=== PATIENT | female | born 1970 | race Caucasian/White ===

== ENCOUNTER → 2025-03-25 09:28 | Outpatient (REF) | payer BC, SELFPAY | LOC: WDC 09:28 | PROVIDERS: ATTENDING PHYSICIAN Nurse Practitioner Adult Health | DX: N63.0 Unspecified lump in unspecified breast (principal) | CPT/HCPCS: 76642; 77062; 77066 ==

== ENCOUNTER → 2025-03-29 07:49 | Outpatient (REF) | payer BC, SELFPAY ==
--- NOTE | 2025-03-29 13:16 | OID.BR.INTR ---
PRISCILLAD Breast Navigator - Initial
- -
Date of Contact: 03/29/25
Met with patient. Patient given written information on navigator service available at [facility]. Will follow up as needed per protocol.
== END ==
LOC: WDC 07:49
PROVIDERS: ATTENDING PHYSICIAN Nurse Practitioner Adult Health
DX: N63.21 Unspecified lump in the left breast, upper outer quadrant (principal)
CPT/HCPCS: 19083; 88305; 88341; 88342; 88360; A4648

== ENCOUNTER 2025-07-15 21:51 | Inpatient (IN) | payer BC, SELFPAY ==
[2025-07-15 13:26] VITALS: BP 112/65
[2025-07-15 13:50] LABS: Hematocrit 31.2 % (37.0-47.0); Hemoglobin 10.7 g/dL (12.0-16.0); Mean Corp Hgb Conc. 34.3 g/dL (33.0-37.0); Mean Corpuscular Volume 90.4 fL (81.0-99.0); Nucleated Red Blood Cells % 0 %; Platelet Count 385 10^3/uL (130-400); Red Cell Dist. Width 11.6 % (11.5-14.5)
[2025-07-15 14:03] LABS: ALT (SGPT) 306 U/L (0-35); AST (SGOT) 264 U/L (14-36); Albumin 4.1 g/dl (3.5-5.0); Alkaline Phosphatase 410 U/L (38-126); Blood Urea Nitrogen 10 mg/dl (7-17); Calcium 9.7 mg/dl (8.4-10.2); Carbon Dioxide 26 mmol/L (22-30); Chloride 100 mmol/L (98-107); Glucose 161 mg/dl (70-99); Potassium 3.8 mmol/L (3.5-5.1); Sodium 136 mmol/L (135-145); Total Protein 6.9 g/dl (6.3-8.2); eGFR > 60.00
[2025-07-15 15:44] VITALS: BMI 20.5
--- NOTE | 2025-07-15 15:49 | ED.GENMED ---
History of Present Illness
<YUMI Wayne - Last Filed: 07/18/25 14:59>
General
Chief Complaint: Post Operative Problem(s)
Source: patient
Exam Limitations: none
Time Seen by Provider: 07/15/25 15:34
Nursing documentation reviewed up to this point in time: agreed with
History of Present Illness
History of Present Illness:
Patient is a 54-year-old female with recently diagnosed breast cancer in April status post right mastectomy May 25 and status post reconstruction June 27 at [facility] by DR Bardales.
Patient reports for the past 1-1/2 weeks she has really not felt well she has had some headaches and joint pain. She thought it was her Arimidex which she is taking for her cancer. She started this July 05. She has had a fever of 102 for the
past 4 nights. She saw her family doctor today however and family doctor noted that her lower incision is red.
She did see his nurse on Friday 3 days ago it was red then however redness has since worsened and spread.
Phy Exam
<YUMI Wayne - Last Filed: 07/18/25 14:59>
General Physical Exam
General Presentation: no apparent distress
General age: appears stated age
General Skin: warm and dry
General Habitus: normal
General Hydration: appears well hydrated
Gastrointestinal Exam
Gastrointestinal Exam: soft and other (scattered erythema to abdomen around incisional site and throughout abdomen, no dehiscence no drainage. non tender )
Neurological Exam
Neurological Exam: alert and oriented x3
Musculoskeletal Exam
Musculoskeletal Exam: full ROM
Skin Exam
Skin Exam: normal color, warm/dry and other (right breast surgical site no evidence of infection or redness)
Psychiatric Exam
Psychiatric Exam: normal mood/affect
Sepsis
<YUMI Wayne - Last Filed: 07/18/25 14:59>
Sepsis Screen
Sepsis Screen: Sepsis Ruled Out
Date: 07/18/25
Time: 14:58
<Dasia Martines PA-C - Last Filed: 07/15/25 23:30>
Sepsis Screening
Sepsis Assessment: Sepsis Ruled Out
Sepsis Screen
Sepsis Screen: Sepsis Ruled Out
Date: 07/15/25
Time: 23:30
Course
<YUMI Wayne - Last Filed: 07/18/25 14:59>
Orders/Labs/Results
Orders:
Orders
07/15/25 13:37
Complete Blood Count/With Diff Urgent
Comprehensive Metabolic Panel Urgent
Lactic Acid Q4H
Comment: ON ICE, CANCEL 2ND ORDER IF FIRST LACTIC ACID LEVEL <2
Blood Culture Q20M
AMADOR Source: Blood/Venous
Specimen Description:
Comment: Urgent from separate sites. If patient screens positive for possible sepsis
07/15/25 15:49
COVID-19 Antigen Urgent
Source: Nasal Swab
Influenza A+B Rapid Molecular Urgent
AMADOR Source: Nasal Swab
Specimen Description:
07/15/25 16:30
CT Abd/Pel (IV only)-DH only Urgent
Comment:
Reason For Exam: post op fever /redness to surgical site
07/15/25 18:59
Ketorolac [Toradol] 15 mg IV NOW STA
07/15/25 19:09
Blood Culture Q20M
AMADOR Source: Blood/Venous
Specimen Description:
Comment: Urgent from separate sites. If patient screens positive for possible sepsis
07/15/25 19:26
Piperacillin/Tazo 3.375 Gram [Zosyn] 3.375 gram in 50 ml IV NOW
07/15/25 19:57
Acetaminophen [Tylenol] 650 mg .ROUTE .STK-MED ONE
07/15/25 19:58
Acetaminophen [Tylenol] 650 mg PO NOW STA
07/15/25 20:25
Vancomycin [Vancocin] 1,500 mg 0.9% Sodium Chloride 500 ml [Nss] 500 ml IV NOW
07/15/25 20:53
Admit/Transfer Patient As Directed
Co-Sign Provider:
Level of Care: Inpatient admission
Assign to:: Medical/Surgical
Physician / Group: Antoine Barrow
Diagnosis: postoperative incision infection
Reason for Hospitalization: postoperative incision infection
Expected length of stay greater than two midnights?: Yes
ELOS- Estimated Length of Stay in days: 3
I certify the patient meets the requirements for IP care: Yes
07/15/25 20:54
PRN Pain Medication Management As Directed
May give lesser potent ordered pain med per pt: Yes
preference::
Protocol:: Medication orders for pain may be administered in a
manner that supports deferring to patient preference
when the pt is:
- Requesting an ordered lesser potent pain medication.
Least to most potent pain medications are defined
as: acetaminophen < NSAID < tramadol < opioids
(morphine, oxycodone, hydromorphone).
- Requesting a lesser dose of the same medication IF
ORDERED.
- Requesting a less intrusive route of administration
if both routes are prescribed by the provider (PO <
IV).
07/15/25 20:55
Code Status As Directed
Resuscitation Status: Full Code
07/15/25 22:27
Acetaminophen [Tylenol] 650 mg PO Q4HPRN PRN
Lorazepam [Ativan] 0.5 mg PO TIDPRN PRN anxiety
07/15/25 22:27
Activity As Directed
Activity Level: Ambulate
Vital Signs As Directed
Frequency: Per unit guidelines
Weight As Directed
Frequency: Once
Comment: on admission
DX Deep Vein Thrombosis Video Routine
07/16/25 02:00
Piperacillin/Tazo 3.375 Gram [Zosyn] 3.375 gram in 50 ml IV Q6H
07/16/25 Breakfast
Regular
At Your Request: Full Participation
07/16/25 08:00
Anastrozole [Arimidex] 1 mg PO DAILY
Aspirin Low Dose EC [Aspir Low (Enteric Coated)] 81 mg PO DAILY
Docusate Sodium [Colace] 100 mg PO DAILY
Lactobac/Bifidobac [Visbiome] 1 cap PO DAILY
07/16/25 08:02
Complete Blood Count/No Diff IN AM
Comprehensive Metabolic Panel IN AM
07/16/25 18:00
Enoxaparin Sodium [Lovenox] 40 mg SC QPM
Abnormal Lab Results
07/15/25
13:37
RBC 3.45 L 10^6/uL
(4.20-5.40)
Hgb 10.7 L g/dL
(12.0-16.0)
Hct 31.2 L %
(37.0-47.0)
Abs Immat Gran (auto) 0.1 H 10^3/uL
(0-0.05)
Absolute Neuts (auto) 7.5 H 10^3/uL
(1.4-6.5)
Absolute Lymphs (auto) 0.5 L 10^3/uL
(1.2-3.4)
Absolute Monos (auto) 0.8 H 10^3/uL
(0.1-0.6)
Immature Gran % 0.6 H %
(0-0.5)
Neutrophils % 84.2 H %
(42.2-75.2)
Lymphocytes % 5.9 L %
(20.5-51.1)
Creatinine 0.4 L mg/dL
(0.6-1.0)
Glucose 161 H mg/dl
(70-99)
AST 264 H U/L
(14-36)
ALT 306 H U/L
(0-35)
Alkaline Phosphatase 410 H U/L
(38-126)
07/15/25 13:37
07/15/25 13:37
Vital Signs
Initial and Last Documented VS:
Initial Vital Signs
Temp Pulse Resp BP Pulse Ox
97.5 F 91 16 112/65 98
07/15/25 13:26 07/15/25 13:26 07/15/25 13:26 07/15/25 13:26 07/15/25 13:26
Last Documented Vital Signs
Temp Pulse Resp BP Pulse Ox
97.9 F 67 16 104/59 99
07/18/25 07:20 07/18/25 07:20 07/18/25 07:20 07/18/25 07:20 07/18/25 07:55
[employer] Clerk consulted with Physician
[employer] Clerk consulted with physician?: Yes
<Soniod Handley MD - Last Filed: 07/15/25 21:49>
Orders/Labs/Results
Orders:
Orders
07/15/25 13:37
Complete Blood Count/With Diff Urgent
Comprehensive Metabolic Panel Urgent
Lactic Acid Q4H
Comment: ON ICE, CANCEL 2ND ORDER IF FIRST LACTIC ACID LEVEL <2
Blood Culture Q20M
AMADOR Source: Blood/Venous
Specimen Description:
Comment: Urgent from separate sites. If patient screens positive for possible sepsis
07/15/25 15:49
COVID-19 Antigen Urgent
Source: Nasal Swab
Influenza A+B Rapid Molecular Urgent
AMADOR Source: Nasal Swab
Specimen Description:
07/15/25 16:30
CT Abd/Pel (IV only)-[facility] only Urgent
Comment:
Reason For Exam: post op fever /redness to surgical site
07/15/25 18:59
Ketorolac [Toradol] 15 mg IV NOW STA
07/15/25 19:09
Blood Culture Q20M
AMADOR Source: Blood/Venous
Specimen Description:
Comment: Urgent from separate sites. If patient screens positive for possible sepsis
07/15/25 19:26
Piperacillin/Tazo 3.375 Gram [Zosyn] 3.375 gram in 50 ml IV NOW
07/15/25 19:57
Acetaminophen [Tylenol] 650 mg .ROUTE .STK-MED ONE
07/15/25 19:58
Acetaminophen [Tylenol] 650 mg PO NOW STA
07/15/25 20:25
Vancomycin [Vancocin] 1,500 mg 0.9% Sodium Chloride 500 ml [Nss] 500 ml IV NOW
07/15/25 20:53
Admit/Transfer Patient As Directed
Co-Sign Provider:
Level of Care: Inpatient admission
Assign to:: Medical/Surgical
Physician / Group: Antoine Barrow
Diagnosis: postoperative incision infection
Reason for Hospitalization: postoperative incision infection
Expected length of stay greater than two midnights?: Yes
ELOS- Estimated Length of Stay in days: 3
I certify the patient meets the requirements for IP care: Yes
07/15/25 20:54
PRN Pain Medication Management As Directed
May give lesser potent ordered pain med per pt: Yes
preference::
Protocol:: Medication orders for pain may be administered in a
manner that supports deferring to patient preference
when the pt is:
- Requesting an ordered lesser potent pain medication.
Least to most potent pain medications are defined
as: acetaminophen < NSAID < tramadol < opioids
(morphine, oxycodone, hydromorphone).
- Requesting a lesser dose of the same medication IF
ORDERED.
- Requesting a less intrusive route of administration
if both routes are prescribed by the provider (PO <
IV).
07/15/25 20:55
Code Status As Directed
Resuscitation Status: Full Code
07/15/25 22:27
Acetaminophen [Tylenol] 650 mg PO Q4HPRN PRN
Lorazepam [Ativan] 0.5 mg PO TIDPRN PRN anxiety
07/15/25 22:27
Activity As Directed
Activity Level: Ambulate
Vital Signs As Directed
Frequency: Per unit guidelines
Weight As Directed
Frequency: Once
Comment: on admission
DX Deep Vein Thrombosis Video Routine
07/16/25 02:00
Piperacillin/Tazo 3.375 Gram [Zosyn] 3.375 gram in 50 ml IV Q6H
07/16/25 Breakfast
Regular
At Your Request: Full Participation
07/16/25 08:00
Anastrozole [Arimidex] 1 mg PO DAILY
Aspirin Low Dose EC [Aspir Low (Enteric Coated)] 81 mg PO DAILY
Docusate Sodium [Colace] 100 mg PO DAILY
Lactobac/Bifidobac [Visbiome] 1 cap PO DAILY
07/16/25 08:02
Complete Blood Count/No Diff IN AM
Comprehensive Metabolic Panel IN AM
07/16/25 18:00
Enoxaparin Sodium [Lovenox] 40 mg SC QPM
Abnormal Lab Results
07/15/25
13:37
RBC 3.45 L 10^6/uL
(4.20-5.40)
Hgb 10.7 L g/dL
(12.0-16.0)
Hct 31.2 L %
(37.0-47.0)
Abs Immat Gran (auto) 0.1 H 10^3/uL
(0-0.05)
Absolute Neuts (auto) 7.5 H 10^3/uL
(1.4-6.5)
Absolute Lymphs (auto) 0.5 L 10^3/uL
(1.2-3.4)
Absolute Monos (auto) 0.8 H 10^3/uL
(0.1-0.6)
Immature Gran % 0.6 H %
(0-0.5)
Neutrophils % 84.2 H %
(42.2-75.2)
Lymphocytes % 5.9 L %
(20.5-51.1)
Creatinine 0.4 L mg/dL
(0.6-1.0)
Glucose 161 H mg/dl
(70-99)
AST 264 H U/L
(14-36)
ALT 306 H U/L
(0-35)
Alkaline Phosphatase 410 H U/L
(38-126)
07/15/25 13:37
07/15/25 13:37
Vital Signs
Initial and Last Documented VS:
Initial Vital Signs
Temp Pulse Resp BP Pulse Ox
97.5 F 91 16 112/65 98
07/15/25 13:26 07/15/25 13:26 07/15/25 13:26 07/15/25 13:26 07/15/25 13:26
Last Documented Vital Signs
Temp Pulse Resp BP Pulse Ox
97.9 F 67 16 104/59 99
07/18/25 07:20 07/18/25 07:20 07/18/25 07:20 07/18/25 07:20 07/18/25 07:55
<Dasia Martines PA-C - Last Filed: 07/15/25 23:30>
Orders/Labs/Results
Orders:
Orders
07/15/25 13:37
Complete Blood Count/With Diff Urgent
Comprehensive Metabolic Panel Urgent
Lactic Acid Q4H
Comment: ON ICE, CANCEL 2ND ORDER IF FIRST LACTIC ACID LEVEL <2
Blood Culture Q20M
AMADOR Source: Blood/Venous
Specimen Description:
Comment: Urgent from separate sites. If patient screens positive for possible sepsis
07/15/25 15:49
COVID-19 Antigen Urgent
Source: Nasal Swab
Influenza A+B Rapid Molecular Urgent
AMADOR Source: Nasal Swab
Specimen Description:
07/15/25 16:30
CT Abd/Pel (IV only)-[facility] only Urgent
Comment:
Reason For Exam: post op fever /redness to surgical site
07/15/25 18:59
Ketorolac [Toradol] 15 mg IV NOW STA
07/15/25 19:09
Blood Culture Q20M
AMADOR Source: Blood/Venous
Specimen Description:
Comment: Urgent from separate sites. If patient screens positive for possible sepsis
07/15/25 19:26
Piperacillin/Tazo 3.375 Gram [Zosyn] 3.375 gram in 50 ml IV NOW
07/15/25 19:57
Acetaminophen [Tylenol] 650 mg .ROUTE .STK-MED ONE
07/15/25 19:58
Acetaminophen [Tylenol] 650 mg PO NOW STA
07/15/25 20:25
Vancomycin [Vancocin] 1,500 mg 0.9% Sodium Chloride 500 ml [Nss] 500 ml IV NOW
07/15/25 20:53
Admit/Transfer Patient As Directed
Co-Sign Provider:
Level of Care: Inpatient admission
Assign to:: Medical/Surgical
Physician / Group: Antoine Barrow
Diagnosis: postoperative incision infection
Reason for Hospitalization: postoperative incision infection
Expected length of stay greater than two midnights?: Yes
ELOS- Estimated Length of Stay in days: 3
I certify the patient meets the requirements for IP care: Yes
07/15/25 20:54
PRN Pain Medication Management As Directed
May give lesser potent ordered pain med per pt: Yes
preference::
Protocol:: Medication orders for pain may be administered in a
manner that supports deferring to patient preference
when the pt is:
- Requesting an ordered lesser potent pain medication.
Least to most potent pain medications are defined
as: acetaminophen < NSAID < tramadol < opioids
(morphine, oxycodone, hydromorphone).
- Requesting a lesser dose of the same medication IF
ORDERED.
- Requesting a less intrusive route of administration
if both routes are prescribed by the provider (PO <
IV).
07/15/25 20:55
Code Status As Directed
Resuscitation Status: Full Code
07/15/25 22:27
Acetaminophen [Tylenol] 650 mg PO Q4HPRN PRN
Lorazepam [Ativan] 0.5 mg PO TIDPRN PRN anxiety
07/15/25 22:27
Activity As Directed
Activity Level: Ambulate
Vital Signs As Directed
Frequency: Per unit guidelines
Weight As Directed
Frequency: Once
Comment: on admission
DX Deep Vein Thrombosis Video Routine
07/16/25 02:00
Piperacillin/Tazo 3.375 Gram [Zosyn] 3.375 gram in 50 ml IV Q6H
07/16/25 Breakfast
Regular
At Your Request: Full Participation
07/16/25 08:00
Anastrozole [Arimidex] 1 mg PO DAILY
Aspirin Low Dose EC [Aspir Low (Enteric Coated)] 81 mg PO DAILY
Docusate Sodium [Colace] 100 mg PO DAILY
Lactobac/Bifidobac [Visbiome] 1 cap PO DAILY
07/16/25 08:02
Complete Blood Count/No Diff IN AM
Comprehensive Metabolic Panel IN AM
07/16/25 18:00
Enoxaparin Sodium [Lovenox] 40 mg SC QPM
Abnormal Lab Results
07/15/25
13:37
RBC 3.45 L 10^6/uL
(4.20-5.40)
Hgb 10.7 L g/dL
(12.0-16.0)
Hct 31.2 L %
(37.0-47.0)
Abs Immat Gran (auto) 0.1 H 10^3/uL
(0-0.05)
Absolute Neuts (auto) 7.5 H 10^3/uL
(1.4-6.5)
Absolute Lymphs (auto) 0.5 L 10^3/uL
(1.2-3.4)
Absolute Monos (auto) 0.8 H 10^3/uL
(0.1-0.6)
Immature Gran % 0.6 H %
(0-0.5)
Neutrophils % 84.2 H %
(42.2-75.2)
Lymphocytes % 5.9 L %
(20.5-51.1)
Creatinine 0.4 L mg/dL
(0.6-1.0)
Glucose 161 H mg/dl
(70-99)
AST 264 H U/L
(14-36)
ALT 306 H U/L
(0-35)
Alkaline Phosphatase 410 H U/L
(38-126)
07/15/25 13:37
07/15/25 13:37
Vital Signs
Initial and Last Documented VS:
Initial Vital Signs
Temp Pulse Resp BP Pulse Ox
97.5 F 91 16 112/65 98
07/15/25 13:26 07/15/25 13:26 07/15/25 13:26 07/15/25 13:26 07/15/25 13:26
Last Documented Vital Signs
Temp Pulse Resp BP Pulse Ox
97.9 F 67 16 104/59 99
07/18/25 07:20 07/18/25 07:20 07/18/25 07:20 07/18/25 07:20 07/18/25 07:55
<YUIM Wayne - Last Filed: 07/18/25 14:59>
MDM/Problems Addressed
Differential Diagnosis Includes:
Not limited to postop surgical site infection, abscess, cellulitis
MDM/Problems Addressed:
As documented patient is status post reconstruction surgery had trans flap for right breast mastectomy 06/27. She has obvious erythema to the abdominal region around the incision and throughout. She has had a fever of 102 for the past 4 days. As
documented her surgery was done at [place]. She is afebrile here last dose of Tylenol was at 10 AM this morning. She has normal white count. LFTs are elevated including AST ALT and alk phosphatase.
Call placed to DR Bardales's office. d/c w/ ED physician will order CT to rule out abscess .
163: Care of patient at this time transferred to [facility]
Chronic conditions affecting care:
Right-sided breast cancer
<YUMI Wayne - Last Filed: 07/18/25 14:59>
*Pulse Oximetry
SaO2: 100
Oxygen Mode of Delivery: Room air
Patient hypoxic: no
<Dasia Martines PA-C - Last Filed: 07/15/25 23:30>
*Critical Care Note
Total Time (30-74mins, 75-104mins- exclusive of procedures): Not Applicable
<Dasia Martines PA-C - Last Filed: 07/15/25 23:30>
Patient Management
Discussion with other providers: Hospitalist
<Dasia Martines PA-C - Last Filed: 07/15/25 23:30>
Update Note
Update Note:
Update: Received patient in signout pending CT scan. CT scan reveals fluid collection in lower anterior abdominal wall unclear if this could be a postsurgical seroma/hematoma or developing abscess. On my exam�there is significant erythema and
tenderness surrounding incision however no focal area of fluctuance. No wound dehiscence or drainage. I do favor infectious process given overall clinical picture.
I did speak with on-call plastic surgery at [facility], Dr. Lamb and reviewed case/CT results. He has overall low suspicion for focal abscess after discussion of given patient was recently seen outpatient in the office. Does not see indication for
surgical intervention or emergent transfer to help at this time. Ultimately�he does recommend admission for IV antibiotics, vancomycin and Zosyn and close monitoring of patient's response to ABX with consideration for transfer/additional
consultation with surgical team if symptoms persist and/or worsen despite IV antibiotics.
Patient did spike a fever of 101.2 while in department. She was given a dose of Tylenol. IV Zosyn/vancomycin initiated in ED. Patient accepted to hospitalist service for continued management.
ED Attending Note
<YUMI Wayne - Last Filed: 07/18/25 14:59>
-
Portions of this chart may have been created with voice recognition software.� Occasional wrong word or��sound alike� substitutions may have occurred due to the inherent limitations of voice recognition software.
<Sonido Handley MD - Last Filed: 07/15/25 21:49>
ED Attending Note
Patient seen and examined by attending physician: Yes
ED Attending Note:
Patient status post right mastectomy in May, reconstruction surgery in June, presents to ED secondary to worsening redness, pain, along with fever and chills along her abdominal incision site over the past 5 days. Patient was evaluated by
her surgery team 3 days ago, where was noted to be red. At that time, decision was to keep an eye on the site, with potential initiation of antibiotics, if her symptoms worsen. Since then, redness has worsened with pain, along with aforementioned
fever. Denies vomiting. Denies open wound. Denies open drainage. Patient has been taking Tylenol/Motrin for fever and pain.
Physical Exam
General: mild distress, not acutely ill. afebrile
Head: nc/at. eomi
Neck: supple. normal range of motion.
Heart: s1/s2 regular rate and rhythm
Lungs: no acute respiratory distress. clear bilaterally
Abdomen: normal bowel sounds. no distention. healing horizontal incision site noted along lower abdomen with diffuse surrounding erythema/warmth with tenderness. no open drainage noted
Neuro: alert and oriented x 3. no focal neurological deficits
Skin: no rash
Psychiatric: well kept. interactive and cooperative
Extremities: no edema.
CT abdomen pelvis pending, to evaluate for potential development of abscess. Will contact patient's surgeon at [facility] afterwards.
CT abd/pel report reviewed and discussed with surgical team at [facility] - does not feel that pt needs urgent transfer, but does recommend iv abx.
Blood cx pending
Discharge Plan
Departure
Patient Disposition: Admit
Date of Disposition: 07/15/25
Time of Disposition: 19:43
Presentation/result/management discussed w/ accepting MD/DO: Hospitalist
Discharge Problem:
Incisional infection
Interventions
Interventions:
*General Assessment Last Done: 07/15/25 13:26
*Neglect/Abuse Screening Last Done: 07/15/25 13:26
*ED Influenza Vaccine History Last Done: 07/15/25 15:45
[facility] Risk Assessment Tool Last Done: 07/15/25 16:00
*Nursing Disposition Last Done: 07/15/25 22:36
ED-Skin Assessment Last Done: 07/15/25 15:45
Discharge Date and Time
Discharge Date/Time: 07/15/25 22:37
[2025-07-15 15:53] VITALS: BP 108/69
[2025-07-15 16:17] LABS: COVID-19 Antigen Negative (Negative)
[2025-07-15] MEDS: TORADOL 15 MG IV (19:05)
[2025-07-15 19:54] VITALS: BP 109/65
[2025-07-15] MEDS: TYLENOL 650 MG PO (19:58)
[2025-07-15] MEDS: ZOSYN 50 IV (20:01)
--- NOTE | 2025-07-15 20:14 | HPS.HSE ---
Addendum entered and electronically signed by Lary Barrow MD 07/15/25 21:10:
This is an addendum to H&P written by Brittany Murcia on 07/15/2025. �Patient seen and examined independently with [facility].
54-year-old female past medical history of breast cancer diagnosed in April status post right mastectomy on 05/25 status post reconstruction with abdominal flap on 06/27 at [facility] by Dr. Bardales presenting with headaches and joint pain and
fever of 102 for the past 4 days. �Incision site from breast surgery is red.
Vital signs show temperature 101.2.
Labs show stable anemia 10.7. �Elevated liver enzymes AST 264, ALT 306, alkaline phosphatase 410.
CT abdomen pelvis shows low-attenuation fluid collection 12 cm x 3 cm craniocaudal, mild adjacent surrounding soft tissue stranding. �No gas within the collection could represent postsurgical sterile collection such as seroma or hematoma or abscess.
Patient with concern for postsurgical infection of abdominal flap site used for breast reconstruction. �There is also concern for seroma or abscess. �Emergency room discussed with patient's surgeon who did not see any need for surgical management or
transfer and recommended she stay here to monitor for improvement. �Check blood cultures. �Vancomycin/Zosyn. �ID consulted.
Transaminitis likely from anastrozole. �Continue to monitor.
Original Note:
Family Physician
-
Family Physician: Orlando Bardales
Chief Complaint
-
postoperative infection
History of Present Illness
Patient is a 54-year-old female with past medical history significant for breast cancer who presented to [facility] ED for evaluation of postoperative infection. Patient recently diagnosed breast cancer in May 2025 and is status post right mastectomy
and status post reconstruction June 27, 2025 at [facility] by DR Bardales. Patient reports first week postop she was doing well, she then began to have discomfort at incision site, redness and tenderness began around Friday07/04/2025 and has
slowly spread since. Incision looks well approximated and is surrounded by erythema, warmth and is tender to touch. Patient reports fevers for last 4 days. Denies any cough, shortness of breath, nausea, vomiting, constipation, diarrhea or urinary
symptoms. ED provider reported off that they 'spoke w/ patients on-call surgeon at [facility]. Lamb who does not see any need for surgical management or transfer at this point. Reviewed CT scan w/ surgeon. Patient was also seen in their office this
past Friday. Recommends IV abx and monitoring for clinical response. Ordered IV vanc/zosyn per their recommendation.'
Medical History
Past Medical History
Past Medical History: Reports Other
Additional Past Medical History:
breast cancer
Past Surgical History: Reports Other
Additional Past Surgical History:
x3
Breast Ca: Rt Mastectomy w/ Reconstruction- 2024
Social History
Tobacco: Former Smoker (quit 2 years ago)
Alcohol: Occasional
Drug: None
Personal:
Living: With Family
Employment: Employed
Family History
Family History: Not pertinent and Other (Father: DM Sister: DM)
Allergies / Home Medications
Allergies reflects when Allergies were last updated in [employer].
Home Medications with original date entered in [employer]
Allergy/Medication List:
Allergies
Allergy/AdvReac Type Severity Reaction Status Date / Time
Sulfa (Sulfonamide Allergy Unknown Verified 07/15/25 13:26
Antibiotics)
sulfisoxazole Allergy Unknown Verified 07/15/25 13:26
Home Medications
Lactobac no.2-Bifidobac no.1-S. thermo 112.5 billion cell capsule (Visbiome) 1 cap PO DAILY Supplement 07/15/25
Medical Marijuana 1 puff PO DAILYPRN PRN anxiety 07/15/25
acetaminophen 500 mg tablet (Tylenol Extra Strength) 1,000 mg PO Q6HPRN PRN mild pain 07/15/25
anastrozole 1 mg tablet 1 mg PO DAILY 07/15/25
aspirin 81 mg tablet,delayed release 81 mg PO DAILY 07/15/25
cinnamon bark 500 mg capsule (Cinnamon) 500 mg PO DAILY Supplement 07/15/25
docusate sodium 100 mg capsule (Colace) 100 mg PO DAILY Constipation 07/15/25
ibuprofen 600 mg tablet 600 mg PO Q6HPRN PRN mild pain 07/15/25
lorazepam 0.5 mg tablet 0.5 mg PO TIDPRN PRN anxiety 07/15/25
turmeric 400 mg capsule 400 mg PO DAILY Supplement 07/15/25
vitamin D3 125 mcg (5,000 unit)-vitamin K2 100 mcg capsule 1 cap PO DAILY Supplement 07/15/25
Review of Systems
-
History Source: Patient
Constitutional: Reports Fever and Chills
EENT: Denies Sore Throat
Respiratory: Denies Cough, Hemoptysis or Trouble Breathing
Cardiac: Denies Chest Pain, Diaphoresis, Palpitations or Syncope
Abdomen/GI: Denies Abdominal Pain, Nausea, Vomiting or Diarrhea
: Denies Dysuria, Frequency or Urgency
Musculoskeletal: Denies Joint Pain
Skin: Reports Other (discomfort at incision site, redness and tenderness began around Friday07/04/2025 and has slowly spread since. Incision looks well approximated and is surrounded by erythema, warmth and is tender to touch)
Neurological: Denies Dizzy or Weakness
Physical Exam
Vital Signs
Vital Signs
Temp Pulse Resp BP Pulse Ox
101.2 F H 95 19 109/65 96
07/15/25 19:54 07/15/25 19:54 07/15/25 19:54 07/15/25 19:54 07/15/25 19:54
Physical Exam
General: Well Developed, Well Nourished, No Apparent Distress, Comfortable and Pain
HEENT: NormoCephalic, Moist mucous membranes, PERRLA, Nose Appears Normal and Ears Appear Normal
Respiratory: Clear and Non Labored Respirations; No Wheezes, Rales or Rhonchi
Cardiac: S1/S2 and Regular Rhythm; No Murmur or Peripheral Edema
GI: Soft, Non Distended, Normal Bowel Sounds and Other (discomfort at incision site, redness and tenderness began around Friday07/04/2025 and has slowly spread since. Incision looks well approximated and is surrounded by erythema, warmth and is
tender to touch)
Musculoskeletal: No Clubbing and No Cyanosis
Skin: Warm, IV/Catheter Site and Other (Incision looks well approximated and is surrounded by erythema, warmth and is tender to touch)
Neuro: Awake and AO x 3
Psych: Calm and Intact Judgment/Insight
Laboratory Results
-
07/15/25 13:37
07/15/25 13:37
Laboratory Results
Lactic Acid Cancelled 07/15/25 13:45
Total Bilirubin 0.6 mg/dl (0.2-1.3) 07/15/25 13:37
AST 264 U/L (14-36) H 07/15/25 13:37
ALT 306 U/L (0-35) H 07/15/25 13:37
Alkaline Phosphatase 410 U/L (38-126) H 07/15/25 13:37
Data Reviewed
-
CT Scan: Report Reviewed by me (Abd/Pel CT: Lower anterior abdominal wall collection, as described. Although this could represent postsurgical sterile collection (seroma or evolving hematoma), early or developing abscess cannot be entirely excluded.
No anterior abdominal wall defect to suggest hernia.)
Lab Data: Labs Reviewed by me (hgb 10.7, hct 31.2, Neut 84.2, AST 264, ALT 306. Alk Phos 410)
Impression/Plan
-
IMPRESSION/PLAN:
#postoperative infection
discomfort at incision site, redness and tenderness began around Friday07/04/2025 and has slowly spread since. Incision looks well approximated and is surrounded by erythema, warmth and is tender to touch
ED provider reported off that they 'spoke w/ patients on-call surgeon at [facility] who does not see any need for surgical management or transfer at this point. Reviewed CT scan w/ surgeon. Patient was also seen in their office this past
Friday. Recommends IV abx and monitoring for clinical response. Ordered IV vanc/zosyn per their recommendation.'
hgb 10.7, hct 31.2, Neut 84.2,
Influenza: negative
Covid: negative
Abd/Pel CT: Lower anterior abdominal wall collection, as described (ow-attenuation fluid collection measuring approximately 12 cm transverse by 3 cm AP by 7 cm craniocaudal). Although this could represent postsurgical sterile
collection (seroma or evolving hematoma), early or developing abscess cannot be entirely excluded.
No anterior abdominal wall defect to suggest hernia.
- Admit to med/surg
- Consult ID
- IV Zosyn and Vanco
- supportive care
#breast cancer
recently diagnosed breast cancer in April status post right mastectomy May 25 and status post reconstruction June 27 at [facility] by DR Bardales
- continue anastrozole
#transaminitis
AST 264, ALT 306. Alk Phos 410
possibly from anastrozole
- monitor LFTs
#anxiety
- continue lorazepam
Code status: full code
DVT prophylaxis: lovenox sq
[2025-07-15] MEDS: VANCOCIN 530 MG IV (20:44)
--- NOTE | 2025-07-15 22:45 | PTCARENOTE ---
Pt. admitted through E.D., AAO x 3, vs stable, pt. ambulated to bed, call farris within reach.
[2025-07-15 22:55] VITALS: BP 95/64; BMI 21.3
--- NOTE | 2025-07-15 23:03 | PHA.VAN.IN ---
Assessment
- Assessment
Renal Function: Other
Concomitant Antimicrobials: PIPERACILLIN/TAZO
Plan
- Plan
Initial / Loading Dose: VANCOMYCIN 1500 MG IV ~ 2044
Maintenance Regimen: Dosing by random level.
Monitoring: A random level is scheduled 07/16 at 0600 w. am labs. pharmacy will follow.
Pharmacokinetics Vancomycin I
- -
Patient Age: 54
Patient Sex: Female
Vancomycin Day #: 1
Indication: Skin And Soft Tissue
Requesting Provider: Twin EASON
Pertinent Antimicrobial Allergies:
Sulfa (sulfonamide Antibiotics) w. unknown rxn.
Height / Weight:
Height 5 ft 2 in
Actual Weight 52.787 kg
Pertinent Past Medical History: Pt recently diagnosed w. breast CA w. post Rt mastectomy infection site.
- Vital Signs / Lab Results
Temp Pulse Resp BP Pulse Ox
97.9 F 91 18 95/64 98
07/15/25 22:55 07/15/25 22:55 07/15/25 22:55 07/15/25 22:55 07/15/25 22:55
Lab Results - Hematology
07/15/25
13:37
WBC 8.9
Lab Results - Chemistry
07/15/25
13:37
BUN 10
Creatinine 0.4 L
Albumin 4.1
07/15/25 07/15/25
13:37 13:45
Lactic Acid 1.2 Cancelled
Microbiology Results
07/15/25 15:49 Influenza Types A & B (KENNEY) - Final
Nasal Swab Negative for Influenza A & B, NAAT
Negative results must be combined with clinical observations
and patient history.
Nucleic Acid Amplification test (NAAT)performed on the
[employer] platform.
[2025-07-15] MEDS: ATIVAN 0.5 MG PO (23:14)
[2025-07-16] MEDS: FLUSH (NSS) 2 FLUSH IV (01:46)
[2025-07-16] MEDS: ZOSYN 50 IV ×4 (01:46→20:29)
[2025-07-16] MEDS: TORADOL 15 MG IV ×3 (05:51→20:34)
[2025-07-16] MEDS: FLUSH (NSS) 1 FLUSH IV ×2 (05:53→14:22)
--- NOTE | 2025-07-16 07:02 | PHA.VAN.FU ---
Vancomycin Assessment / Plan
- Assessment
Renal Function: Stable
WBC's are: WNL
Concomitant Antimicrobials: piperacillin/tazobactam
- Assessment - Therapeutic Drug Monitoring
Random Level: 6.5 - drawn ~11H after 1500mg loading dose
- Dosing Plan
Adjust Regimen to: Vanc 750mg Q12H
New Regimen Predicts: AUC (600), Peak (36), Trough (16)
Patient may have enhanced clearance of vancomycin due to cancer (Pharmacotherapy. 2019;4012):9195-3518)
Give first dose now then 1999 then scheduled from 07/17 0600 to booster levels
- Monitoring Plan
No level(s) ordered at this time: consider levels in next few days
- Follow Up
Pharmacy will continue to follow.
Vancomycin Follow UP
- -
Patient Age: 54
Patient Sex: Female
Vancomycin Day #: 2
Indication: Skin And Soft Tissue
Requesting Provider: Twin EASON / Dr. Pagan
Pertinent Antimicrobial Allergies:
sulfonamide Antibiotics - unknown
Height / Weight:
Height 5 ft 2 in
Actual Weight 52.787 kg
Pertinent Past Medical History: breast cancer s/p mastectomy
- Vital Signs / Lab Results
Temp Pulse Resp BP Pulse Ox
97.9 F 91 18 95/64 98
07/15/25 22:55 07/15/25 22:55 07/15/25 22:55 07/15/25 22:55 07/15/25 22:55
Lab Results - Hematology
07/15/25
13:37
WBC 8.9
Lab Results - Chemistry
07/15/25
13:37
BUN 10
Creatinine 0.4 L
Albumin 4.1
07/15/25 07/15/25
13:37 13:45
Lactic Acid 1.2 Cancelled
Microbiology Results
07/15/25 15:49 Influenza Types A & B (KENNEY) - Final
Nasal Swab Negative for Influenza A & B, NAAT
Negative results must be combined with clinical observations
and patient history.
Nucleic Acid Amplification test (NAAT)performed on the
[employer] platform.
[2025-07-16 07:20] VITALS: BP 95/58
[2025-07-16] MEDS: ARIMIDEX 1 MG PO (07:30)
[2025-07-16] MEDS: ASPIR LOW (ENTERIC COATED) 81 MG PO (07:30)
[2025-07-16] MEDS: VISBIOME 1 CAP PO (07:30)
[2025-07-16] MEDS: COLACE 100 MG PO (07:30)
[2025-07-16 08:42] LABS: Hematocrit 27.5 % (37.0-47.0); Hemoglobin 9.5 g/dL (12.0-16.0); Mean Corp Hgb Conc. 34.5 g/dL (33.0-37.0); Mean Corpuscular Volume 90.8 fL (81.0-99.0); Platelet Count 351 10^3/uL (130-400); Red Cell Dist. Width 11.4 % (11.5-14.5)
[2025-07-16 09:19] LABS: ALT (SGPT) 233 U/L (0-35); AST (SGOT) 130 U/L (14-36); Albumin 3.3 g/dl (3.5-5.0); Alkaline Phosphatase 329 U/L (38-126); Blood Urea Nitrogen 12 mg/dl (7-17); Calcium 9.1 mg/dl (8.4-10.2); Carbon Dioxide 24 mmol/L (22-30); Chloride 103 mmol/L (98-107); Estimated Creatinine Clearance 84 ml/min; Glucose 97 mg/dl (70-99); Potassium 3.9 mmol/L (3.5-5.1); Sodium 135 mmol/L (135-145); Total Protein 5.8 g/dl (6.3-8.2); eGFR > 60.00
--- NOTE | 2025-07-16 09:45 | PTCARENOTE ---
Large amount of drainage of lower abdominal incision from right side. Drainage color: serosanguineous, yellow pus, and small amt of blood. Gauze and ABD pad applied with tape. Hospitalist aware.
--- NOTE | 2025-07-16 10:07 | W.PN.HOSP.TC ---
Addendum entered and electronically signed by Francisco Stahl MD 07/16/25 17:06:
Contacted by Dr. Harrison/on-call plastic surgeon and discussed clinical development
She is planning to let Dr. Bardales know about this development.
She agrees with patient being monitored on IV antibiotic at [place] with AGUSTIN drain placed for drainage.
Will contact transfer center again if needed.
Original Note:
Today's Communication/Plan
-
see note
Assessment / Plan
Assessment / Plan
CT a/p
Lower anterior abdominal wall collection, as described. Although this could represent postsurgical sterile collection (seroma or evolving hematoma), early or developing abscess cannot be entirely excluded.
No anterior abdominal wall defect to suggest hernia.
1. Abdominal surgical site infection
Abdominal wall fluid collection - infected seroma vs abscess
s/p Right breast reconstruction surgery from abdominal flap on 06/27/25
h/o of right mastectomy for stage I right breast cancer ER/VT positive, HER2 neg
- Patient underwent right breast reconstruction surgery with abdominal skin graft by Dr Bardales at [facility] on 06/27
- Postoperatively patient was doing fairly well and had office follow-up with before with no issue
- Earlier this week patient started to having some joint aches/chills and was seen by PCP in the office
-Patient was noted to having some right breast surgical site erythema and was requested to come into the hospital
-In ER patient noted to having abdominal wall tenderness/warmth as well.
-CT abdomen pelvis done in ER showed abdominal wall collection suspected of seroma versus omental
-findings were discussed with on-call plastic surgeon by ER physician and patient was requested to be started on broad-spectrum antibiotic and admitted for further monitoring
-Patient in the morning having spontaneous drainage from left abd wall incision site. Fluid is seropurulent in nature and copious amount. Follow-up superficial wound culture report
-Case discussed with infectious disease physician and plan to have AGUSTIN drain placed for drainage, IR consulted for this
-I have contacted [facility] again to connect with plastic surgeon to discuss for possible need of surgical debridement with new development, awaiting call back.
2. Acute transaminitis
-ALT 233 AST 130 ALP 329 TBilli 0.6
-No liver or gallbladder abnormalities noted on CT a/p
-Avoid providing tylenol
-Repeat LFT for the morning ordered
3. stage I right breast cancer ER/VT positive, HER2 neg
s/p right mastectomy
-maintain on anastrozole therapy
DVTPPX -scd
Full code
Care plan discussed with ID
Total time spent 58 mins
Anticipated Discharge: 24 - 48 hours
Subjective/Interval History
-
Date of Service: July 16, 2025
patient having some lower abd discomfort
denies nausea/vomiting
have some sero-purulent drainage from the abd surgical site and undergarment soaked from the drainage
Objective Data
-
Labs:
Laboratory Results
07/16/25
08:02
WBC 6.9
Hgb 9.5 L
Hct 27.5 L
Plt Count 351
Sodium 135
Potassium 3.9
Chloride 103
Carbon Dioxide 24
BUN 12
Creatinine 0.5 L
Glucose 97
Calcium 9.1
Total Bilirubin 0.6
AST 130 H
ALT 233 H
Alkaline Phosphatase 329 H
Vital Signs:
Vital Signs
Temp Pulse Resp BP Pulse Ox
98.1 F 80 17 95/58 97
07/16/25 07:20 07/16/25 07:20 07/16/25 07:20 07/16/25 07:20 07/16/25 08:00
I&O
07/15/25 07/16/25 07/17/25
06:59 06:59 06:59
Intake Total 120 / 120
Balance 120 / 120
Review of Systems
-
Respiratory: Reports No Symptoms
Cardiac: Reports No Symptoms
Abdomen/GI: Reports Abdominal Pain; Denies Nausea or Vomiting
Physical Exam
-
General: No Apparent Distress and Comfortable
HEENT: Negative Oxygen
Breast: Other (Right breast - incision looks clean, scabbing , no dehiscence)
GI: Soft, Tender and Other (Midline horizontal scar running across the lower abdomen, drainage of sero-purulent material from the left side, )
Neuro: Awake, Alert and Oriented
Psych: Calm
[2025-07-16] MEDS: VANCOCIN 150 IV ×2 (11:27→20:38)
--- NOTE | 2025-07-16 13:55 | CON.ID ---
Consultation
-
Date/Time Consultation Requested: 07/15/2025 2236
Date/Time Consultation Performed: 07/16/2025 1350
Requesting Provider: Brittany Murcia
Performing Provider: Dr. Pagan
Reason for Consultation: Abdominal collection
Chief Complaint / Past History
History of Present Illness
Ana M Awad is a 54-year-old female being evaluated at the request of Brittany Murcia regarding abdominal collection. History is obtained from chart review, along with patient interview.
The patient has a significant past medical history of lobular breast cancer stage II diagnosed in early April. She underwent a left mastectomy on 05/25 with lymph node dissection and underwent breast reconstruction at [facility] on 06/27.
Reconstruction included an abdominal flap. She reports that she was doing well for 1 week week after reconstruction, but thereafter began to feel increasingly fatigued, with subsequent development of nausea (without vomiting), joint pain and fever.
She was tested for flu and COVID, both of which were negative. Temperatures peaked at 102.5 degrees. Ultimately she presented to the hospital for further evaluation and abdominal imaging has revealed the presence of an anterior abdominal wall
collection. She was started on empiric antibiotics and Infectious Diseases is asked to comment upon further workup and antibiotic management.
Since admission, she notes that there has been the development of purulent oozing from the left abdominal wall. Interventional Radiology has been consulted for drain placement.
Past History
Additional Past Medical History:
Lobular breast cancer stage II
Additional Past Surgical History:
Right mastectomy(05/25/2025) with reconstruction (06/23/2025)
x 3
Allergy History:
Sulfa (Sulfonamide Antibiotics) Allergy (Verified 07/15/25 13:26)
Unknown
sulfisoxazole Allergy (Verified 07/15/25 13:26)
Unknown
Medications Reviewed: Yes
Current Antibiotics:
Vancomycin
Zosyn 3.375 gm IV q.6 hours
Social History
Tobacco: Former Smoker
Alcohol: None
Drug: None
Personal:
Living: With Family
Employment: Employed
Family History
Family History: Not Pertinent
Review of Systems
Vital Signs
Temp Pulse Resp BP Pulse Ox
98.1 F 80 17 95/58 97
07/16/25 07:20 07/16/25 07:20 07/16/25 07:20 07/16/25 07:20 07/16/25 08:00
Physical Exam
Physical Exam
Constitutional: No Acute Distress, Comfortable and Non-toxic
Head: Normocephalic
Eyes: Pupils Equal, Pupils Round, No Conjunctival Hemorrhage and Sclera Anicteric
Oral: No Thrush and No Ulcers
Cardiovascular: Regular Rate and S1/S2; Negative S3/S4
Pulmonary: Clear; Negative Wheezes, Rales or Rhonchi
Gastrointestinal: Soft, Tender, Non Distended, Normal Bowel Sounds, No Rebound and No Guarding
Genito-Urinary: Negative Sanchez
Extremities: Negative Edema, Cyanosis or Erythema
Wound: Other (Abdominal wound healing, but pinpoint area of drainage on left abdominal wall with purulence.)
Neurological: Awake, Alert and Oriented
Psychological: Calm
Lab / Diagnostic Study Results
07/16/25 08:02
07/16/25 08:02
Abs Immat Gran (auto) 0.1 10^3/uL (0-0.05) H 07/15/25 13:37
Absolute Neuts (auto) 7.5 10^3/uL (1.4-6.5) H 07/15/25 13:37
Absolute Lymphs (auto) 0.5 10^3/uL (1.2-3.4) L 07/15/25 13:37
Absolute Monos (auto) 0.8 10^3/uL (0.1-0.6) H 07/15/25 13:37
Absolute Basos (auto) 0.1 10^3/uL (0-0.2) 07/15/25 13:37
Immature Gran % 0.6 % (0-0.5) H 07/15/25 13:37
Neutrophils % 84.2 % (42.2-75.2) H 07/15/25 13:37
Lymphocytes % 5.9 % (20.5-51.1) L 07/15/25 13:37
Monocytes % 8.4 % (1.7-9.3) 07/15/25 13:37
Eosinophils % 0.3 % (0-6) 07/15/25 13:37
Basophils % 0.6 % (0-2) 07/15/25 13:37
Lactic Acid Cancelled 07/15/25 13:45
Microbiology Results
Micro:
07/15/25 13:37 Blood Culture - Preliminary
Blood/Venous No Growth in 24 hours- Final report to follow
07/15/25 19:09 Blood Culture - Pending
Blood/Venous
07/15/25 15:49 Influenza Types A & B (KENNEY) - Final
Nasal Swab Negative for Influenza A & B, NAAT
Negative results must be combined with clinical observations
and patient history.
Nucleic Acid Amplification test (NAAT)performed on the
[employer] platform.
Imaging:
07/15/2025 CT abdomen/pelvis with IV contrast: Across the lower anterior abdominal wall, there is a low-attenuation fluid collection measuring approximately 12 cm transverse by 3 cm AP by 7 cm craniocaudal. Mild adjacent and surrounding soft tissue
stranding. No gas identified within the collection, nor within the adjacent or surrounding soft tissues. Although this could represent postsurgical sterile collection (seroma or evolving hematoma), early or developing abscess cannot be entirely
excluded.
Assessment / Plan
Abdominal wall abscess
S/p recent abdominal wall flap /right breast reconstruction (06/27/2025)
Normal white count with left shift
Transaminitis
Stage II lobular breast cancer; s/p right mastectomy
Recommendations:
Culture has been obtained of left abdominal wall drainage.
Continue with vancomycin and Zosyn pending further culture data.
Interventional Radiology has been consulted for drain placement.
Monitor white count and temperature curve.
Further recommendations as additional data is returned.
Care Review
Plan reviewed with: Physician (Hospitalist)
[2025-07-16 15:10] VITALS: BP 91/51
[2025-07-16] MEDS: LOVENOX 40 MG SC (20:31)
[2025-07-16 23:05] VITALS: BP 96/61
[2025-07-17] VITALS (12 sets, daily range): BP systolic 62–109; BP diastolic 58–71
[2025-07-17] MEDS: ZOSYN 50 IV ×4 (02:27→20:40)
[2025-07-17] MEDS: TORADOL 15 MG IV ×4 (02:28→21:41)
[2025-07-17] MEDS: FLUSH (NSS) 2 FLUSH IV (05:32)
[2025-07-17] MEDS: VANCOCIN 150 IV ×2 (05:32→17:25)
[2025-07-17] MEDS: VISBIOME 1 CAP PO (08:12)
[2025-07-17] MEDS: ARIMIDEX 1 MG PO (08:12)
[2025-07-17] MEDS: ASPIR LOW (ENTERIC COATED) 81 MG PO (08:12)
[2025-07-17] MEDS: COLACE 100 MG PO (08:13)
[2025-07-17] MEDS: ZOFRAN 4 MG IV (08:30)
[2025-07-17 08:33] LABS: Hematocrit 26.7 % (37.0-47.0); Hemoglobin 9.3 g/dL (12.0-16.0); Mean Corp Hgb Conc. 34.8 g/dL (33.0-37.0); Mean Corpuscular Volume 89.6 fL (81.0-99.0); Platelet Count 355 10^3/uL (130-400); Red Cell Dist. Width 11.2 % (11.5-14.5)
[2025-07-17 08:42] LABS: ALT (SGPT) 219 U/L (0-35); AST (SGOT) 112 U/L (14-36); Albumin 3.0 g/dl (3.5-5.0); Alkaline Phosphatase 326 U/L (38-126); Blood Urea Nitrogen 10 mg/dl (7-17); Calcium 9.1 mg/dl (8.4-10.2); Carbon Dioxide 25 mmol/L (22-30); Chloride 104 mmol/L (98-107); Estimated Creatinine Clearance 63 ml/min; Glucose 102 mg/dl (70-99); Potassium 3.9 mmol/L (3.5-5.1); Sodium 137 mmol/L (135-145); Total Protein 5.4 g/dl (6.3-8.2); eGFR > 60.00
--- NOTE | 2025-07-17 09:45 | PHA.VAN.FU ---
Vancomycin Assessment / Plan
- Assessment
Renal Function: Stable
WBC's are: WNL
In the past 24 hrs, patient has been: Afebrile
Concomitant Antimicrobials: piperacillin/tazobactam
- Dosing Plan
Continue: Vanc 750mg Q12H
- Monitoring Plan
Peak Level: 07/17 21:00
Trough Level: 07/18 05:30
Monitoring Comments: levels to be drawn after 4th total dose of 750mg
- Follow Up
Pharmacy will continue to follow.
Vancomycin Follow UP
- -
Patient Age: 54
Patient Sex: Female
Vancomycin Day #: 3
Indication: Skin And Soft Tissue
Requesting Provider: Twin EASON / Dr. Pagan
Pertinent Antimicrobial Allergies:
sulfonamide Antibiotics - unknown
Height / Weight:
Height 5 ft 2 in
Actual Weight 52.787 kg
Pertinent Past Medical History: breast cancer s/p mastectomy
- Vital Signs / Lab Results
Temp Pulse Resp BP Pulse Ox
98.5 F 80 14 98/63 93
07/17/25 07:54 07/17/25 07:54 07/17/25 07:54 07/17/25 07:54 07/17/25 07:54
Lab Results - Hematology
07/15/25 07/16/25 07/17/25
13:37 08:02 07:33
WBC 8.9 6.9 6.4
Lab Results - Chemistry
07/15/25 07/16/25 07/17/25
13:37 08:02 07:33
BUN 10 12 10
Creatinine 0.4 L 0.5 L 0.8
Estimated Creat Clear 84 63
Albumin 4.1 3.3 L 3.0 L
07/15/25 07/15/25
13:37 13:45
Lactic Acid 1.2 Cancelled
Microbiology Results
07/15/25 19:09 Blood Culture - Preliminary
Blood/Venous No Growth in 24 hours- Final report to follow
07/15/25 13:37 Blood Culture - Preliminary
Blood/Venous No Growth in 24 hours- Final report to follow
07/15/25 15:49 Influenza Types A & B (KENNEY) - Final
Nasal Swab Negative for Influenza A & B, NAAT
Negative results must be combined with clinical observations
and patient history.
Nucleic Acid Amplification test (NAAT)performed on the
[employer] platform.
Therapeutic Drug Monitoring
Random Vancomycin 6.5 ug/ml 07/16/25 08:02
--- NOTE | 2025-07-17 09:46 | W.PN.HOSP.TC ---
Today's Communication/Plan
-
IR to drain collection/AGUSTIN drain placement
abx per ID
f/u superficial wound cs report
Assessment / Plan
Assessment / Plan
CT a/p
Lower anterior abdominal wall collection, as described. Although this could represent postsurgical sterile collection (seroma or evolving hematoma), early or developing abscess cannot be entirely excluded.
No anterior abdominal wall defect to suggest hernia.
1. Abdominal surgical site infection
Abdominal wall fluid collection - infected seroma vs abscess
s/p Right breast reconstruction surgery from abdominal flap on 06/27/25
h/o of right mastectomy for stage I right breast cancer ER/ID positive, HER2 neg
- Patient underwent right breast reconstruction surgery with abdominal skin graft by Dr Bardales at [facility] on 06/27
- Postoperatively patient was doing fairly well and had office follow-up with before with no issue
- Earlier this week patient started to having some joint aches/chills and was seen by PCP in the office
-Patient was noted to having some right breast surgical site erythema and was requested to come into the hospital
-In ER patient noted to having abdominal wall tenderness/warmth as well.
-CT abdomen pelvis done in ER showed abdominal wall collection suspected of seroma versus omental
-findings were discussed with on-call plastic surgeon by ER physician and patient was requested to be started on broad-spectrum antibiotic and admitted for further monitoring
-Patient in the morning having spontaneous drainage from left abd wall incision site. Fluid is seropurulent in nature and copious amount. Follow-up superficial wound culture report
-Case discussed with infectious disease physician and plan to have AGUSTIN drain placed for drainage, IR consulted for this, pending for today
-[facility] Plastic surg Dr Harrison updated yesterday who in turn will update Dr Bardales. Agrees with plan of AGUSTIN drain placement/culture/IV abx.
2. Acute transaminitis - trending down
-ALT 233 AST 130 ALP 329 TBilli 0.6
-No liver or gallbladder abnormalities noted on CT a/p
-Avoid providing tylenol
-LFT improving slowly.
3. stage I right breast cancer ER/ID positive, HER2 neg
s/p right mastectomy
-maintain on anastrozole therapy
DVTPPX -scd
Full code
Anticipated Discharge: 24 - 48 hours
Subjective/Interval History
-
Date of Service: July 17, 2025
complaining of some nausea
have some abd pain
no BM in last 48hrs
Objective Data
-
Labs:
Laboratory Results
07/17/25
07:33
WBC 6.4
Hgb 9.3 L
Hct 26.7 L
Plt Count 355
Sodium 137
Potassium 3.9
Chloride 104
Carbon Dioxide 25
BUN 10
Creatinine 0.8
Glucose 102 H
Calcium 9.1
Total Bilirubin 0.3
AST 112 H
ALT 219 H
Alkaline Phosphatase 326 H
Vital Signs:
Vital Signs
Temp Pulse Resp BP Pulse Ox
98.5 F 80 14 98/63 93
07/17/25 07:54 07/17/25 07:54 07/17/25 07:54 07/17/25 07:54 07/17/25 07:54
I&O
07/16/25 07/17/25 07/18/25
06:59 06:59 06:59
Intake Total 120 / 120 620 / 620
Balance 120 / 120 620 / 620
Review of Systems
-
Respiratory: Reports No Symptoms
Cardiac: Reports No Symptoms
Abdomen/GI: Reports No Symptoms
Physical Exam
-
General: No Apparent Distress and Comfortable
HEENT: Negative Oxygen
Breast: Other (Right breast - incision looks clean, scabbing , no dehiscence)
GI: Soft, Tender and Other (Midline horizontal scar running across the lower abdomen, drainage of sero-purulent material from the left side, )
Neuro: Awake, Alert and Oriented
Psych: Calm
[2025-07-17] MEDS: MIRALAX 17 GRAMS PO (11:09)
--- NOTE | 2025-07-17 13:26 | W.PN.IRAD.PR ---
Procedure Note
-
US in IR showed minimal residual fluid in abd wall collection, suggesting that sig amount has drained via the wound. 8 Fr drainage catheter placed under US guidance, return 6cc blood tinged purulent appearing fluid, sample sent for micro.
--- NOTE | 2025-07-17 14:31 | CM ---
CM reviewed chart, patient seen bedside, initial assessment completed.
Patient is a 54-year-old female with past medical history significant for breast cancer who presented to [facility] ED for evaluation of postoperative infection.
Patient resides with her in a two level home, 8 steps to enter.
Patient denies use of DME, reports she is current with [facility] as she received her surgery at [facility]- will send referral in [facility].
PCP Dominique Self, Pharmacy [facility].
Pt denies needs from CM at this time. Will continue to follow for d/c needs.
Plan; home with [facility]
[2025-07-17] MEDS: LOVENOX 40 MG SC (17:25)
[2025-07-17] MEDS: ATIVAN 0.5 MG PO (21:23)
[2025-07-18] MEDS: ZOSYN 50 IV ×3 (02:00→13:01)
[2025-07-18] MEDS: DULCOLAX 10 MG PO (02:08)
[2025-07-18 03:04] VITALS: BP 99/58
[2025-07-18] MEDS: TORADOL 15 MG IV ×3 (05:07→17:00)
[2025-07-18] MEDS: ZOFRAN 4 MG IV ×2 (05:30→16:56)
[2025-07-18 05:57] LABS: Hematocrit 26.1 % (37.0-47.0); Hemoglobin 8.9 g/dL (12.0-16.0); Mean Corp Hgb Conc. 34.1 g/dL (33.0-37.0); Mean Corpuscular Volume 89.4 fL (81.0-99.0); Platelet Count 368 10^3/uL (130-400); Red Cell Dist. Width 11.4 % (11.5-14.5)
[2025-07-18] MEDS: VANCOCIN 150 IV ×2 (06:01→17:01)
[2025-07-18 06:18] LABS: ALT (SGPT) 191 U/L (0-35); AST (SGOT) 78 U/L (14-36); Albumin 3.0 g/dl (3.5-5.0); Alkaline Phosphatase 298 U/L (38-126); Blood Urea Nitrogen 11 mg/dl (7-17); Calcium 9.0 mg/dl (8.4-10.2); Carbon Dioxide 27 mmol/L (22-30); Chloride 102 mmol/L (98-107); Estimated Creatinine Clearance 56 ml/min; Glucose 92 mg/dl (70-99); Potassium 4.1 mmol/L (3.5-5.1); Sodium 135 mmol/L (135-145); Total Protein 5.4 g/dl (6.3-8.2); eGFR > 60.00
[2025-07-18 07:20] VITALS: BP 104/59
[2025-07-18] MEDS: ARIMIDEX 1 MG PO (07:53)
[2025-07-18] MEDS: MIRALAX PO ×2 (07:53→08:01)
[2025-07-18] MEDS: COLACE PO ×2 (07:53→08:01)
[2025-07-18] MEDS: VISBIOME 1 CAP PO (07:53)
[2025-07-18] MEDS: ASPIR LOW (ENTERIC COATED) 81 MG PO (07:53)
--- NOTE | 2025-07-18 09:15 | PHA.VAN.FU ---
Vancomycin Assessment / Plan
- Assessment
Renal Function: Stable
WBC's are: WNL
In the past 24 hrs, patient has been: Afebrile
- Assessment - Therapeutic Drug Monitoring
Extrapolated Cmax (mcg/mL): 27.1
Peak level was drawn: Appropriately
Extrapolated Cmin (mcg/mL): 12.3
Trough Drawn: Appropriately
Levels were drawn: At steady state
Calculated AUC (mcg*h/mL): 452
Calculated ke: 0.07
Calculated half life (H): 9.7
Calculated Vd (L): 46.2
Calculated Vanc CL (ml/min): 3.32
- Dosing Plan
Continue: Vancomycin 750 mg IV q12h
- Monitoring Plan
No level(s) ordered at this time: Consider weekly levels or sooner if renal function changes
Level(s) appropriate: Recheck trough at minimum of weekly intervals
- Follow Up
Pharmacy will continue to follow.
Vancomycin Follow UP
- -
Patient Age: 54
Patient Sex: Female
Vancomycin Day #: 4
Indication: Skin And Soft Tissue
Requesting Provider: [facility] / Dr. Pagan
Pertinent Antimicrobial Allergies:
sulfonamide Antibiotics - unknown
Height / Weight:
Height 5 ft 2 in
Actual Weight 52.787 kg
Pertinent Past Medical History: breast cancer s/p mastectomy
- Vital Signs / Lab Results
Temp Pulse Resp BP Pulse Ox
97.9 F 67 16 104/59 99
07/18/25 07:20 07/18/25 07:20 07/18/25 07:20 07/18/25 07:20 07/18/25 07:20
Lab Results - Hematology
07/15/25 07/16/25 07/17/25
13:37 08:02 07:33
WBC 8.9 6.9 6.4
07/18/25
05:27
WBC 5.6
Lab Results - Chemistry
07/15/25 07/16/25 07/17/25
13:37 08:02 07:33
BUN 10 12 10
Creatinine 0.4 L 0.5 L 0.8
Estimated Creat Clear 84 63
Albumin 4.1 3.3 L 3.0 L
07/18/25
05:27
BUN 11
Creatinine 0.9
Estimated Creat Clear 56
Albumin 3.0 L
07/15/25 07/15/25
13:37 13:45
Lactic Acid 1.2 Cancelled
Microbiology Results
07/17/25 13:15 Gram Stain - Preliminary
Abdomen
07/15/25 19:09 Blood Culture - Preliminary
Blood/Venous No Growth in 48 hours- Final report to follow
07/16/25 14:48 Wound Culture - Preliminary
Abdomen Staphylococcus species
Gram Stain - Preliminary
07/15/25 13:37 Blood Culture - Preliminary
Blood/Venous No Growth in 48 hours- Final report to follow
Therapeutic Drug Monitoring
Vancomycin Peak 23.0 ug/ml (18-26) 07/17/25 20:43
Vancomycin Trough 12.3 ug/ml (5-20) 07/18/25 05:27
Random Vancomycin 6.5 ug/ml 07/16/25 08:02
--- NOTE | 2025-07-18 11:12 | W.PN.UPDATE ---
Update Note
Progress Note Update
This is a 54 yo female with past medical history significant for lobular breast cancer stage II. She underwent a left mastectomy on 05/25 with lymph node dissection and underwent breast reconstruction at [facility] on 06/27. Reconstruction included an
abdominal flap. She was initially doing well for 1 week week after reconstruction. She subsequenlty developed a fever of 102.5, fatigue, nausea (without vomiting) and arthralgias She presented to the hospital for further evaluation. She had a
CT scan of gthe abdomen which revealed the presence of an anterior abdominal wall collection. She had a drain placed by IR.
This is a WNWD 54 yo female who is AA&O in NAD lying in bed. Theere is a drain in the LLQ abdomen draining purulent fluid
A/P
54 yo female with abdominal wall abscess s/p abdominal flap reconstruction following left mastectomy
Drain with purulent output- 10mL so far today
Pt and educated to flush drain daily with 5 mL NSS
Rx for flushes in chart
Drain instructions left with patient
--- NOTE | 2025-07-18 12:48 | W.PN.ID1 ---
Addendum entered and electronically signed by Bryce Pagan, DO 07/18/25 15:58:
I saw and evaluated the patient. I reviewed the resident�s note and agree with findings and plan as documented in the resident�s note.
Transition zosyn to ancef pending furhter culture data. Consider repeat abdominal imaging.
Original Note:
Date of Service
Date of Service: July 18, 2025
Today's Communication
Transition zosyn to ancef. Continue vanco.
Await sensitivities
Assessment / Plan
#Abdominal wall abscess
#S/p recent abdominal wall flap /right breast reconstruction (06/27/2025)
#Normal white count with left shift
#Transaminitis
Prior to admission:
#Stage II lobular breast cancer; s/p right mastectomy
Plan:
Infected abdominal surgical site/ abscess
-- Culture has been obtained of left abdominal wall drainage - revealed Staphylococcus aureus
--Final sensitivities are pending
-- Transition Zosyn to cefazolin. Continue vanco.
--Interventional Radiology consulted s/p AGUSTIN drain and 6 cc blood-tinged purulent fluid removed on 07/17
--Given fluid collection was much larger on imaging, IR suspects most of purulence drained via the wound prior to procedure.
--Consider repeat ab/pelvic CT or abdominal US to evaluate resolution of collection.
--Monitor white count and temperature curve.
updated at bedside.
Chief Complaint
-: Fever and Other (Abdominal collection)
Subjective / Review of Systems
Subjectively feeling better however abdominal pain is ongoing. AGUSTIN drain still has purulent fluid present.
Review of Systems: No Fever, No Chills, No Nausea, No Vomiting and Other (Ongoing abdominal pain)
Vital Signs / Physical Exam
Vital Signs
Vital Signs
Temp Pulse Resp BP Pulse Ox
97.9 F 67 16 104/59 99
07/18/25 07:20 07/18/25 07:20 07/18/25 07:20 07/18/25 07:20 07/18/25 07:55
Physical Exam
Constitutional: No Acute Distress and Comfortable
Pulmonary: Clear
Gastrointestinal: Tender, Non Tender, Normal Bowel Sounds and Other (Left-sided AGUSTIN drain site -purulent bloody fluid noted)
Skin: Warm and Dry
Neurological: AO x 3
Psychological: Calm
Objective Data
Lab Data
Lab Results
07/18/25 05:27
07/18/25 05:27
Estimated Creat Clear 56 ml/min 07/18/25 05:27
Lactic Acid Cancelled 07/15/25 13:45
Total Bilirubin 0.2 mg/dl (0.2-1.3) 07/18/25 05:27
AST 78 U/L (14-36) H 07/18/25 05:27
ALT 191 U/L (0-35) H 07/18/25 05:27
Alkaline Phosphatase 298 U/L (38-126) H 07/18/25 05:27
Most recent labs reviewed.
Micro Results:
07/17/25 13:15 Wound Culture - Preliminary
Abdomen Staphylococcus aureus
Gram Stain - Preliminary
07/16/25 14:48 Wound Culture - Preliminary
Abdomen Staphylococcus aureus
Gram Stain - Preliminary
07/15/25 19:09 Blood Culture - Preliminary
Blood/Venous No Growth in 48 hours- Final report to follow
07/15/25 13:37 Blood Culture - Preliminary
Blood/Venous No Growth in 48 hours- Final report to follow
07/15/25 15:49 Influenza Types A & B (KENNEY) - Final
Nasal Swab Negative for Influenza A & B, NAAT
Negative results must be combined with clinical observations
and patient history.
Nucleic Acid Amplification test (NAAT)performed on the
[employer] platform.
Imaging:
07/15/2025 CT abdomen/pelvis with IV contrast: Across the lower anterior abdominal wall, there is a low-attenuation fluid collection measuring approximately 12 cm transverse by 3 cm AP by 7 cm craniocaudal. Mild adjacent and surrounding soft tissue
stranding. No gas identified within the collection, nor within the adjacent or surrounding soft tissues. Although this could represent postsurgical sterile collection (seroma or evolving hematoma), early or developing abscess cannot be entirely
excluded.
--- NOTE | 2025-07-18 14:05 | W.PN.HOSP.TC ---
Today's Communication/Plan
-
Monitor vital signs see plan
Culture growing Staph aureus, await final culture with sensitivities
Continue with antibiotics per infectious disease
Monitor drain
Assessment / Plan
Assessment / Plan
CT a/p
Lower anterior abdominal wall collection, as described. Although this could represent postsurgical sterile collection (seroma or evolving hematoma), early or developing abscess cannot be entirely excluded.
No anterior abdominal wall defect to suggest hernia.
Abdominal surgical site infection
Abdominal wall fluid collection - infected seroma vs abscess
s/p Right breast reconstruction surgery from abdominal flap on 06/27/25
h/o of right mastectomy for stage I right breast cancer ER/RI positive, HER2 neg
- Patient underwent right breast reconstruction surgery with abdominal skin graft by Dr Bardales at [facility] on 06/27
- Postoperatively patient was doing fairly well and had office follow-up with before with no issue
- Earlier this week patient started to having some joint aches/chills and was seen by PCP in the office
-Patient was noted to having some right breast surgical site erythema and was requested to come into the hospital
-In ER patient noted to having abdominal wall tenderness/warmth as well.
-CT abdomen pelvis done in ER showed abdominal wall collection suspected of seroma versus omental
-findings were discussed with on-call plastic surgeon by ER physician and patient was requested to be started on broad-spectrum antibiotic and admitted for further monitoring
-Patient in the morning having spontaneous drainage from left abd wall incision site. Fluid is seropurulent in nature and copious amount. Follow-up superficial wound culture report. Growing Staph aureus
-Case discussed with infectious disease physician and plan to have AGUSTIN drain placed for drainage, status post IR drain placement 07/17. Monitor drain output
-[facility] Plastic surg Dr Harrison updated by Dr. Stahl yesterday who in turn will update Dr Bardales. Agrees with plan of AGUSTIN drain placement/culture/IV abx.
Acute transaminitis - trending down
-ALT 233 AST 130 ALP 329 TBilli 0.6
-No liver or gallbladder abnormalities noted on CT a/p
-Avoid providing tylenol
-LFT improving slowly.
Anemia
Denies any bleeding
Check iron panel, B12, folate
stage I right breast cancer ER/RI positive, HER2 neg
s/p right mastectomy
-maintain on anastrozole therapy
DVTPPX -Lovenox
Full code
General: No Apparent Distress and Comfortable
HEENT: Negative Oxygen
GI: Soft, Tender and Other (Midline horizontal scar running across the lower abdomen, + drain, )
Neuro: Awake, Alert and Oriented
Psych: Calm
Anticipated Discharge: 24 - 48 hours
Subjective/Interval History
-
Date of Service: July 18, 2025
Denies nausea
Objective Data
-
Labs:
Laboratory Results
07/18/25
05:27
WBC 5.6
Hgb 8.9 L
Hct 26.1 L
Plt Count 368
Sodium 135
Potassium 4.1
Chloride 102
Carbon Dioxide 27
BUN 11
Creatinine 0.9
Glucose 92
Calcium 9.0
Total Bilirubin 0.2
AST 78 H
ALT 191 H
Alkaline Phosphatase 298 H
Vital Signs:
Vital Signs
Temp Pulse Resp BP Pulse Ox
97.9 F 67 16 104/59 99
07/18/25 07:20 07/18/25 07:20 07/18/25 07:20 07/18/25 07:20 07/18/25 07:55
I&O
07/17/25 07/18/25 07/19/25
06:59 06:59 06:59
Intake Total 620 / 620 2019
Output Total
Balance 620 / 620 2009
[2025-07-18 15:43] VITALS: BP 91/59
[2025-07-18 15:48] LABS: Iron 52 ug/dl (37-170)
[2025-07-18 15:58] LABS: Total Iron Binding Capacity 187 ug/dl (265-497)
[2025-07-18 16:58] LABS: Ferritin 193.0 ng/ml (11.1-264.0)
--- NOTE | 2025-07-18 16:58 | CM ---
CM met with patient at bedside. She had perc drain placed to abdominal incision on 07/17. She is currently on IV Ancef. Plan remains home with when stable for d/c.Referral was made for resumption of care to [facility].
Plan: home with spouse, AN[facility]
[2025-07-18] MEDS: ANCEF 10 IV (17:00)
[2025-07-18] MEDS: LOVENOX 40 MG SC (17:01)
[2025-07-18 17:29] LABS: Folate 11.6 ng/ml (2.76-20); Vitamin B12 345 pg/ml (239-931)
[2025-07-18] MEDS: VITAMIN B-12 1000 MCG PO (18:24)
[2025-07-18] MEDS: ATIVAN 0.5 MG PO (20:23)
[2025-07-18 23:28] VITALS: BP 97/61
[2025-07-19] MEDS: ANCEF 10 IV ×3 (01:14→17:04)
[2025-07-19] MEDS: TORADOL 15 MG IV ×4 (01:14→21:16)
[2025-07-19] MEDS: ZOFRAN 4 MG IV ×4 (01:22→21:16)
[2025-07-19] MEDS: VANCOCIN 150 IV (06:17)
[2025-07-19 07:15] VITALS: BP 98/58
[2025-07-19] MEDS: VITAMIN B-12 1000 MCG PO (07:29)
[2025-07-19] MEDS: VISBIOME 1 CAP PO (07:29)
[2025-07-19] MEDS: ASPIR LOW (ENTERIC COATED) 81 MG PO (07:29)
[2025-07-19] MEDS: MIRALAX PO (07:29)
[2025-07-19] MEDS: COLACE PO (07:29)
[2025-07-19] MEDS: ARIMIDEX 1 MG PO (07:29)
[2025-07-19 08:23] LABS: Hematocrit 29.1 % (37.0-47.0); Hemoglobin 10.0 g/dL (12.0-16.0); Mean Corp Hgb Conc. 34.4 g/dL (33.0-37.0); Mean Corpuscular Volume 90.9 fL (81.0-99.0); Nucleated Red Blood Cells % 0 %; Platelet Count 397 10^3/uL (130-400); Red Cell Dist. Width 11.3 % (11.5-14.5)
[2025-07-19 08:43] LABS: ALT (SGPT) 107 U/L (0-35); AST (SGOT) 42 U/L (14-36); Albumin 3.1 g/dl (3.5-5.0); Alkaline Phosphatase 277 U/L (38-126); Blood Urea Nitrogen 11 mg/dl (7-17); Calcium 9.2 mg/dl (8.4-10.2); Carbon Dioxide 28 mmol/L (22-30); Chloride 104 mmol/L (98-107); Estimated Creatinine Clearance 39 ml/min; Glucose 110 mg/dl (70-99); Potassium 4.1 mmol/L (3.5-5.1); Sodium 137 mmol/L (135-145); Total Protein 5.7 g/dl (6.3-8.2); eGFR 48.56
[2025-07-19] MEDS: NSS 1000 IV ×2 (09:13→21:16)
--- NOTE | 2025-07-19 09:16 | VATNOTE ---
Notified by PCN that pt's IV looked 'pink.' Upon assessment, it was noted that pt's IV was very mildly erythematous, pt appreciated mild discomfort, and this RN noted approx 5cm x 4cm of swelling. IV removed and new PIV established. Warm compress
applied to swelling at site of old IV.
[2025-07-19 10:37] LABS: Urine Character Clear (Clear)
[2025-07-19 11:40] LABS: Urine Squamous Cell >30 /LPF (Few)
[2025-07-19 11:57] LABS: Body Fluid for Eosinophils No Eosinophils seen
--- NOTE | 2025-07-19 13:12 | W.PN.HOSP.TC ---
Today's Communication/Plan
-
Monitor vital signs see plan
Continue with antibiotics per ID
Bladder scan
UA nonsuggestive of UTI
Monitor renal function
Gentle hydration
Assessment / Plan
Assessment / Plan
CT a/p
Lower anterior abdominal wall collection, as described. Although this could represent postsurgical sterile collection (seroma or evolving hematoma), early or developing abscess cannot be entirely excluded.
No anterior abdominal wall defect to suggest hernia.
Abdominal surgical site infection
Abdominal wall fluid collection - infected seroma vs abscess
s/p Right breast reconstruction surgery from abdominal flap on 06/27/25
h/o of right mastectomy for stage I right breast cancer ER/SC positive, HER2 neg
- Patient underwent right breast reconstruction surgery with abdominal skin graft by Dr Bardales at [facility] on 06/27
- Postoperatively patient was doing fairly well and had office follow-up with before with no issue
- Earlier this week patient started to having some joint aches/chills and was seen by PCP in the office
-Patient was noted to having some right breast surgical site erythema and was requested to come into the hospital
-In ER patient noted to having abdominal wall tenderness/warmth as well.
-CT abdomen pelvis done in ER showed abdominal wall collection suspected of seroma versus omental
-findings were discussed with on-call plastic surgeon by ER physician and patient was requested to be started on broad-spectrum antibiotic and admitted for further monitoring
-Patient in the morning having spontaneous drainage from left abd wall incision site. Fluid is seropurulent in nature and copious amount. Follow-up superficial wound culture report. Growing MSSA
-Case discussed with infectious disease physician and plan to have AGUSTIN drain placed for drainage, status post IR drain placement 07/17. Monitor drain output
-[facility] Plastic surg Dr Harrison updated by Dr. Stahl who in turn will update Dr Bardales. Agrees with plan of AGUSTIN drain placement/culture/IV abx.
Acute transaminitis - trending down
-ALT 233 AST 130 ALP 329 TBilli 0.6
-No liver or gallbladder abnormalities noted on CT a/p
-Avoid providing tylenol
-LFT improving slowly.
Anemia
Denies any bleeding
monitor
SPENCER likely secondary to hypotension and recent IV contrast
Creatinine 1.3, gentle hydration
UA not suggestive of UTI, monitor urine lites
urine eos neg
mild nausea
zofran prn
monitor
stage I right breast cancer ER/SC positive, HER2 neg
s/p right mastectomy
-maintain on anastrozole therapy
DVTPPX -Lovenox
Full code
General: No Apparent Distress and Comfortable
HEENT: Negative Oxygen
GI: Soft, Tender and Other (Midline horizontal scar running across the lower abdomen, + drain, )
Neuro: Awake, Alert and Oriented
Psych: Calm
I spent a total of 54 minutes with the patient or on the floor. More than 50% of this time involved counseling and coordination of care.
Anticipated Discharge: > 48 hours
Subjective/Interval History
-
Date of Service: July 19, 2025
Does have some nausea
Objective Data
-
Labs:
Laboratory Results
07/19/25
07:42
WBC 6.3
Hgb 10.0 L
Hct 29.1 L
Plt Count 397
Sodium 137
Potassium 4.1
Chloride 104
Carbon Dioxide 28
BUN 11
Creatinine 1.3 H
Glucose 110 H
Calcium 9.2
Total Bilirubin 0.2
AST 42 H
ALT 107 H
Alkaline Phosphatase 277 H
Vital Signs:
Vital Signs
Temp Pulse Resp BP Pulse Ox
97.4 F 69 16 98/58 99
07/19/25 07:15 07/19/25 07:15 07/19/25 07:15 07/19/25 07:15 07/19/25 07:45
I&O
07/18/25 07/19/25 07/20/25
06:59 06:59 06:59
Intake Total 2019 755 / 755
Output Total 45 45
Balance 2009 710 / 710
--- NOTE | 2025-07-19 15:13 | W.PN.ID1 ---
Date of Service
Date of Service: July 19, 2025
Today's Communication
Narrow to cefazolin alone. Check abdominal ultrasound to assess resolution of collection.
Assessment / Plan
#Abdominal wall abscess
- Cultures with MSSA
#S/p recent abdominal wall flap /right breast reconstruction (06/27/2025)
#Normal white count with left shift
#Transaminitis
Prior to admission:
#Stage II lobular breast cancer; s/p right mastectomy
Recommendations:
Narrow to cefazolin alone.
Check abdominal wall ultrasound to assess for decreased collection of size or collection resolution.
- If resolved, we will be able to transition to oral Keflex at discharge.
Patient will need follow-up in surgical office within a week of discharge.
Monitor white count and temperature curve.
updated at bedside.
����������������������������������������������������������
Chief Complaint
-: Fever and Other (Abdominal collection)
Subjective / Review of Systems
Patient seen and examined. Reports improvement in abdominal wall discomfort. Drain with serosanguineous drainage only.
Review of Systems: No Fever and No Chills
Vital Signs / Physical Exam
Vital Signs
Vital Signs
Temp Pulse Resp BP Pulse Ox
97.4 F 69 16 98/58 99
07/19/25 07:15 07/19/25 07:15 07/19/25 07:15 07/19/25 07:15 07/19/25 07:45
Physical Exam
Constitutional: No Acute Distress and Comfortable
Pulmonary: Clear
Gastrointestinal: Tender, Non Tender, Normal Bowel Sounds and Other (Left-sided AGUSTIN drain site - serosanguineous fluid noted at this point.)
Skin: Warm and Dry
Neurological: AO x 3
Psychological: Calm
Objective Data
Lab Data
Lab Results
07/19/25 07:42
07/19/25 07:42
Estimated Creat Clear 39 ml/min 07/19/25 07:42
Lactic Acid Cancelled 07/15/25 13:45
Total Bilirubin 0.2 mg/dl (0.2-1.3) 07/19/25 07:42
AST 42 U/L (14-36) H 07/19/25 07:42
ALT 107 U/L (0-35) H 07/19/25 07:42
Alkaline Phosphatase 277 U/L (38-126) H 07/19/25 07:42
Most recent labs reviewed.
Micro Results:
07/15/25 13:37 Blood Culture - Preliminary
Blood/Venous No Growth in 4 days- Final report to follow
07/19/25 10:18 Urine Culture - Pending
Urine
07/17/25 13:15 Wound Culture - Final
Abdomen S aureus-Methicillin Sensitive
Gram Stain - Final
07/16/25 14:48 Wound Culture - Final
Abdomen S aureus-Methicillin Sensitive
Gram Stain - Final
07/15/25 19:09 Blood Culture - Preliminary
Blood/Venous No Growth in 72 hours- Final report to follow
07/15/25 15:49 Influenza Types A & B (KENNEY) - Final
Nasal Swab Negative for Influenza A & B, NAAT
Negative results must be combined with clinical observations
and patient history.
Nucleic Acid Amplification test (NAAT)performed on the
[employer] platform.
Imaging:
07/15/2025 CT abdomen/pelvis with IV contrast: Across the lower anterior abdominal wall, there is a low-attenuation fluid collection measuring approximately 12 cm transverse by 3 cm AP by 7 cm craniocaudal. Mild adjacent and surrounding soft tissue
stranding. No gas identified within the collection, nor within the adjacent or surrounding soft tissues. Although this could represent postsurgical sterile collection (seroma or evolving hematoma), early or developing abscess cannot be entirely
excluded.
[2025-07-19 15:47] VITALS: BP 104/66
[2025-07-19] MEDS: LOVENOX 40 MG SC (17:04)
[2025-07-19] MEDS: ATIVAN 0.5 MG PO (21:16)
[2025-07-19 22:43] VITALS: BP 111/60
[2025-07-20] MEDS: ANCEF 10 IV ×2 (02:02→11:21)
[2025-07-20] MEDS: ZOFRAN 4 MG IV (06:09)
[2025-07-20] MEDS: TORADOL 15 MG IV (06:10)
[2025-07-20 07:10] VITALS: BP 112/65
[2025-07-20 07:23] LABS: Hematocrit 24.7 % (37.0-47.0); Hemoglobin 8.6 g/dL (12.0-16.0); Mean Corp Hgb Conc. 34.8 g/dL (33.0-37.0); Mean Corpuscular Volume 89.5 fL (81.0-99.0); Nucleated Red Blood Cells % 0 %; Platelet Count 342 10^3/uL (130-400); Red Cell Dist. Width 11.3 % (11.5-14.5)
[2025-07-20 07:52] LABS: ALT (SGPT) 48 U/L (0-35); AST (SGOT) 27 U/L (14-36); Albumin 2.6 g/dl (3.5-5.0); Alkaline Phosphatase 221 U/L (38-126); Blood Urea Nitrogen 9 mg/dl (7-17); Calcium 8.7 mg/dl (8.4-10.2); Carbon Dioxide 23 mmol/L (22-30); Chloride 107 mmol/L (98-107); Estimated Creatinine Clearance 46 ml/min; Glucose 89 mg/dl (70-99); Potassium 3.8 mmol/L (3.5-5.1); Sodium 134 mmol/L (135-145); Total Protein 4.9 g/dl (6.3-8.2); eGFR 59.34
[2025-07-20] MEDS: ARIMIDEX 1 MG PO (08:45)
[2025-07-20] MEDS: VISBIOME 1 CAP PO (08:45)
[2025-07-20] MEDS: ASPIR LOW (ENTERIC COATED) 81 MG PO (08:45)
[2025-07-20] MEDS: COLACE PO (08:55)
[2025-07-20] MEDS: MIRALAX PO (08:55)
[2025-07-20] MEDS: VITAMIN B-12 1000 MCG PO (10:36)
[2025-07-20] MEDS: NSS 1000 IV (10:36)
[2025-07-20] MEDS: FLUSH (NSS) 1 FLUSH IV (11:22)
--- NOTE | 2025-07-20 11:22 | W.PN.ID1 ---
Date of Service
Date of Service: July 20, 2025
Today's Communication
Cont abx. See below...
Assessment / Plan
#Abdominal wall abscess
- Cultures with MSSA
#S/p recent abdominal wall flap /right breast reconstruction (06/27/2025)
#Normal white count with left shift
#Transaminitis
Prior to admission:
#Stage II lobular breast cancer; s/p right mastectomy
Recommendations:
Abd US with improved/resolved collection.
Transition to oral Keflex 500 mg PO QID x 14 days at discharge.
Patient with follow-up appt in surgical office tomorrow.
updated at bedside.
����������������������������������������������������������
Chief Complaint
-: Fever and Other (Abdominal collection)
Subjective / Review of Systems
Patient seen and examined. Reports abdomen feeling much improved. No fevers or chills.
Review of Systems: No Fever and No Chills
Vital Signs / Physical Exam
Vital Signs
Vital Signs
Temp Pulse Resp BP Pulse Ox
98.0 F 69 16 112/65 97
07/20/25 07:10 07/20/25 07:10 07/20/25 07:10 07/20/25 07:10 07/20/25 07:10
Physical Exam
Constitutional: No Acute Distress and Comfortable
Pulmonary: Clear
Gastrointestinal: Tender, Non Tender, Normal Bowel Sounds and Other (Left-sided AGUSTIN drain site - scant serosanguineous fluid noted at this point.)
Skin: Warm and Dry
Neurological: AO x 3
Psychological: Calm
Objective Data
Lab Data
Lab Results
07/20/25 07:11
07/20/25 07:11
Estimated Creat Clear 46 ml/min 07/20/25 07:11
Lactic Acid Cancelled 07/15/25 13:45
Total Bilirubin < 0.1 mg/dl (0.2-1.3) L 07/20/25 07:11
AST 27 U/L (14-36) 07/20/25 07:11
ALT 48 U/L (0-35) H 07/20/25 07:11
Alkaline Phosphatase 221 U/L (38-126) H 07/20/25 07:11
Most recent labs reviewed.
Micro Results:
07/19/25 10:18 Urine Culture - Final
Urine NO GROWTH
07/15/25 19:09 Blood Culture - Preliminary
Blood/Venous No Growth in 4 days- Final report to follow
07/15/25 13:37 Blood Culture - Preliminary
Blood/Venous No Growth in 4 days- Final report to follow
07/17/25 13:15 Wound Culture - Final
Abdomen S aureus-Methicillin Sensitive
Gram Stain - Final
07/16/25 14:48 Wound Culture - Final
Abdomen S aureus-Methicillin Sensitive
Gram Stain - Final
07/15/25 15:49 Influenza Types A & B ([facility]) - Final
Nasal Swab Negative for Influenza A & B, NAAT
Negative results must be combined with clinical observations
and patient history.
Nucleic Acid Amplification test (NAAT)performed on the
[employer] platform.
Imaging:
07/19/2025 Abdominal ultrasound: Limited targeted ultrasound of the lower abdominal wall reveals a percutaneous catheter within the subcutaneous soft tissues with scant surrounding fluid
07/15/2025 CT abdomen/pelvis with IV contrast: Across the lower anterior abdominal wall, there is a low-attenuation fluid collection measuring approximately 12 cm transverse by 3 cm AP by 7 cm craniocaudal. Mild adjacent and surrounding soft tissue
stranding. No gas identified within the collection, nor within the adjacent or surrounding soft tissues. Although this could represent postsurgical sterile collection (seroma or evolving hematoma), early or developing abscess cannot be entirely
excluded.
Care Review
Plan reviewed with: Physician (Hospitalist)
--- NOTE | 2025-07-20 12:16 | W.PN.HOSP.TC ---
Addendum entered and electronically signed by Pierre Lee MD 07/20/25 14:59:
Correction: Transition to oral Keflex 500 mg PO QID x 14 days at discharge.
Original Note:
Today's Communication/Plan
-
Monitor vital signs see plan
Transition to p.o. antibiotics per infectious disease
Creatinine improving, repeat BMP outpatient
Discharge today
Time of discharge 38 minutes
Assessment / Plan
Assessment / Plan
CT a/p
Lower anterior abdominal wall collection, as described. Although this could represent postsurgical sterile collection (seroma or evolving hematoma), early or developing abscess cannot be entirely excluded.
No anterior abdominal wall defect to suggest hernia.
Abdominal surgical site infection
Abdominal wall fluid collection - infected seroma vs abscess
s/p Right breast reconstruction surgery from abdominal flap on 06/27/25
h/o of right mastectomy for stage I right breast cancer ER/KS positive, HER2 neg
- Patient underwent right breast reconstruction surgery with abdominal skin graft by Dr Bardales at [facility] on 06/27
- Postoperatively patient was doing fairly well and had office follow-up with before with no issue
- Earlier this week patient started to having some joint aches/chills and was seen by PCP in the office
-Patient was noted to having some right breast surgical site erythema and was requested to come into the hospital
-In ER patient noted to having abdominal wall tenderness/warmth as well.
-CT abdomen pelvis done in ER showed abdominal wall collection suspected of seroma versus omental
-findings were discussed with on-call plastic surgeon by ER physician and patient was requested to be started on broad-spectrum antibiotic and admitted for further monitoring
-Patient in the morning having spontaneous drainage from left abd wall incision site. Fluid is seropurulent in nature Follow-up superficial wound culture report. Growing MSSA. Complete 14-day course of antibiotics with doxycycline 100 mg twice
daily through 07/30/2025 per ID. Patient has an appointment with her surgeon 07/21
-Case discussed with infectious disease physician and plan to have AGUSTIN drain placed for drainage, status post IR drain placement 07/17. Monitor drain output
-[facility] Plastic surg Dr Harrison updated by Dr. Stahl who in turn will update Dr Bardales. Agrees with plan of AGUSTIN drain placement/culture/IV abx.
Acute transaminitis - trending down
-ALT 233 AST 130 ALP 329 TBilli 0.6
-No liver or gallbladder abnormalities noted on CT a/p
-Avoid providing tylenol
-LFT improving slowly.
Anemia
Denies any bleeding
monitor
SPENCER likely secondary to hypotension and recent IV contrast
Creatinine 1.3, gentle hydration. improving, now 1.1
UA not suggestive of UTI, monitor urine lites
urine eos neg
mild nausea
zofran prn
monitor
stage I right breast cancer ER/KS positive, HER2 neg
s/p right mastectomy
-maintain on anastrozole therapy
DVTPPX -Lovenox
Full code
General: No Apparent Distress and Comfortable
HEENT: Negative Oxygen
GI: Soft, Tender and Other (Midline horizontal scar running across the lower abdomen, + drain, )
Neuro: Awake, Alert and Oriented
Psych: Calm
Anticipated Discharge: Today
Subjective/Interval History
-
Date of Service: July 20, 2025
feeling better
Objective Data
-
Labs:
Laboratory Results
07/20/25
07:11
WBC 7.1
Hgb 8.6 L
Hct 24.7 L
Plt Count 342
Sodium 134 L
Potassium 3.8
Chloride 107
Carbon Dioxide 23
BUN 9
Creatinine 1.1 H
Glucose 89
Calcium 8.7
Total Bilirubin < 0.1 L
AST 27
ALT 48 H
Alkaline Phosphatase 221 H
Vital Signs:
Vital Signs
Temp Pulse Resp BP Pulse Ox
98.0 F 69 16 112/65 97
07/20/25 07:10 07/20/25 07:10 07/20/25 07:10 07/20/25 07:10 07/20/25 07:10
I&O
07/19/25 07/20/25 07/21/25
06:59 06:59 06:59
Intake Total 755 / 755 1984
Output Total 45 / 45
Balance 710 / 710 1964 / 1964
--- NOTE | 2025-07-20 14:57 | W.DCSUMMARY ---
Discharge Summary
Discharge Data
Date of Admission: 07/15/25
Date of Discharge: 07/20/25
-
Pending Results: No
Hospital Course
54-year-old female with stage I breast cancer status postmastectomy with recent right breast reconstruction surgery from abdominal flap came to the hospital for abdominal surgical wall infection with abdominal wall abscess. Initially was determined
that it would be best to have patient transferred to [facility] where she has a plastic surgeon however they recommended to keep the patient here with placement of AGUSTIN drain and antibiotics. Patient was then seen by IR and got AGUSTIN drain placed.
Cultures from the drain grew MSSA. Patient was seen by infectious disease and initially was on IV antibiotic which was later transitioned to p.o. Keflex to complete the course. While patient was in the hospital she also had elevated LFTs which
continue to improve over time. On discharge she was instructed to follow-up with her PCP for repeat blood work. She also had acute kidney injury which was likely thought was secondary to hypotension and recent IV contrast use. She was given IV
fluids and her creatinine continued to improve. On discharge she was instructed to get her kidney blood work outpatient. On discharge patient already has an appointment to follow-up with her plastic surgeon tomorrow at [facility]. Once her symptoms
continue to improve, she was then discharged home with instructions to follow-up with all her physicians outpatient.
Discharge Plan
-
Patient Disposition: Home (Routine Discharge)
Discharge Diagnosis/Procedures: Abdominal surgical site infection with abdominal wall abscess
S/p recent abdominal wall flap /right breast reconstruction
Acute kidney injury
Condition: Fair
Diet: As tolerated
Activity: As tolerated
Driving Restrictions: As prior to admission
Bathing Restrictions: None
Blood Work: CMP on Friday with primary care provider
Activity Restrictions/Additional Instructions:
Follow-up with your surgeon outpatient
Drain instructions left by IR
Referrals:
Orlando Bardales MD [Family Provider, Plastic Surgery] - 07/21/25
Kimzey,Bryce D., DO [Active, Infectious Diseases]
Trevor Barrett DO [Active, Radiology]
UNKNOWN - PT DOES,NOT KNOW [Unknown Provider, Family Practice] - in less than 1 week
Prescriptions:
New
sodium chloride 0.9 % (flush) [Normal Saline Flush] Syringe
5 ml intra-catheter DAILY Qty: 25 2RF
cyanocobalamin (vitamin B-12) 500 mcg Tablet
1,000 mcg PO DAILY Qty: 30 0RF
ondansetron HCl 8 mg tablet
8 mg PO Q8H PRN (Reason: nausea and vomiting) 5 Days Qty: 15 0RF
cephalexin 500 mg capsule
500 mg PO QID 14 Days Qty: 56 0RF
Continued
anastrozole 1 mg Tablet
1 mg PO DAILY
aspirin 81 mg Tablet,Delayed Release (Dr/Ec)
81 mg PO DAILY
acetaminophen [Tylenol Extra Strength] 500 mg Tablet
1,000 mg PO Q6HPRN PRN (Reason: mild pain)
lorazepam 0.5 mg Tablet
0.5 mg PO TIDPRN PRN (Reason: anxiety)
docusate sodium [Colace] 100 mg Capsule
100 mg PO DAILY
cinnamon bark [Cinnamon] 500 mg Capsule
500 mg PO DAILY
Visbiome 112.5 billion cell Capsule
1 cap PO DAILY
turmeric 400 mg Capsule
400 mg PO DAILY
vitamin D3-vitamin K2 125 mcg (5,000 unit)-100 mcg Capsule
1 cap PO DAILY
Medical Marijuana
1 puff PO DAILYPRN PRN (Reason: anxiety)
Held
ibuprofen 600 mg Tablet
600 mg PO Q6HPRN PRN (Reason: mild pain)
Hold Instructions: Can restart once kidney function improve
Discharge Orders:
Discharge Patient (As Directed); Ordered 07/20/25
Ordered By: Pierre Lee
Discharge Date and Time
Discharge Date/Time: 07/20/25 15:56
Print Language: PALESTINIAN
--- NOTE | 2025-07-20 15:37 | CM ---
Patient is being discharged home today. She is returning home with her . He will provide transport home. She has been referred to [facility] for resumption of care.
Plan: Home today, [facility]
[2025-07-20 15:51] VITALS: BP 121/68
[2025-07-21 00:19] LABS: Transferrin 139 mg/dL (200-360)
== END 2025-07-20 15:56 | disposition home health service (06) | DRG 863 ==
LOC: 4 WEST ACU 21:51
PROVIDERS: Emergency Medicine; Hospitalist; Nurse Practitioner; Nurse Practitioner Family; Radiology Vascular & Interventional Radiology; ADMITTING PHYSICIAN Hospitalist; ATTENDING PHYSICIAN Internal Medicine; CONSULT PHYSICIAN Internal Medicine Infectious Disease; EMERGENCY PHYSICIAN Emergency Medicine; FAMILY PHYSICIAN Plastic Surgery
PROC: 0W9F30Z Drainage of Abdominal Wall with Drainage Device, Percutaneous Approach (ICD-10-PCS; 2025-07-17)
DX: T81.41XA Infection following a procedure, superficial incisional surgical site, initial encounter (principal); L02.211 Cutaneous abscess of abdominal wall; N17.9 Acute kidney failure, unspecified; Y83.4 Other reconstructive surgery as the cause of abnormal reaction of the patient, or of later complication, without mention of misadventure at the time of the procedure; Z85.3 Personal history of malignant neoplasm of breast; R74.01 Elevation of levels of liver transaminase levels; D64.9 Anemia, unspecified; Z79.811 Long term (current) use of aromatase inhibitors; Z87.891 Personal history of nicotine dependence; Z90.13 Acquired absence of bilateral breasts and nipples; Z11.52 Encounter for screening for COVID-19
CPT/HCPCS: 49406; 74177; 76705; 80053; 80202; 81003; 81015; 81099; 82570; 82607; 82728; 82746; 83540; 83550; 83605; 84300; 84466; 85025; 85027; 87040; 87070; 87086; 87147; 87186; 87205; 87502; 87811; 96365; 96366; 96367; 96375; 99284; C1729; C1769; Q9967